=== PATIENT | male | born 1990 | race African-American/Black ===

== ENCOUNTER 2019-03-12 17:11 | Emergency (ER) | payer SELFPAY ==
[~2019-03-12] VITALS: Ht 180.3 cm; Wt 90.0 kg
[2019-03-12 17:38] VITALS: BP 127/79
[2019-03-12] MEDS ORDERED: LIDOCAINE HCL/PF 1% 10 MG/ML 5ML VIAL IJ ONE (21:15)
[2019-03-12] MEDS ORDERED: BACITRACIN ZINC OINT UDPKT TOP ONE (21:15)
[2019-03-12] MEDS ORDERED: LIDOCAINE HCL 2% JELLY 5ML TOP ONE (21:30)
== END 2019-03-14 05:32 | disposition home or self-care (01) ==
LOC: ER 17:11
DX: L02.31 Cutaneous abscess of buttock (principal); L03.317 Cellulitis of buttock
CPT/HCPCS: 99283

== ENCOUNTER 2022-01-16 08:32 | Emergency (ER) | payer MEDICAID ==
[~2022-01-16] VITALS: Ht 182.9 cm; Wt 90.0 kg
[2022-01-16] MEDS ORDERED: MORPHINE SULFATE 4 MG/ML CPJ (NOT FOR IM USE) IV STA (11:16)
[2022-01-16] MEDS ORDERED: LEVOFLOXACIN 500MG PREMIX 100 ML IV ONE (11:30)
[2022-01-16] MEDS ORDERED: METRONIDAZOLE 500 MG PREMIX 100 ML IV ONE (11:30)
[2022-01-16] MEDS ORDERED: SODIUM CHLORIDE 0.9% 1,000 ML IV ONE (11:30)
[2022-01-16 11:44] LABS: BASOPHILS % 0.1 % (0.0-2.0); EOSINOPHILS % 0.2 % (0.0-5.0); HEMATOCRIT. 41.3 % (42.0-52.0); HEMOGLOBIN. 13.9 g/dL (14.0-18.0); MEAN CORPUSCULAR HEMOGLOBIN 28.2 pg (28.0-32.0); MEAN CORPUSCULAR VOLUME 83.9 fL (80.0-94.0); MONOCYTES % 6.5 % (2.0-8.0); NEUTROPHILS % 75.2 % (40.0-76.0); PLATELET 266 x1000/uL (130-400); RED BLOOD CELL COUNT 4.93 mill/uL (4.7-6.1); RED CELL DISTRIBUTION WIDTH 13.2 % (11.6-14.6)
[2022-01-16 11:54] LABS: CHLORIDE 107 mEq/L (98-107)
[2022-01-16] MEDS ORDERED: IOHEXOL-300 100 ML BOTTLE ONE (15:02)
[2022-01-17 00:20] VITALS: BP 119/76
== END 2022-01-17 00:31 | disposition short-term general hospital (02) ==
LOC: ER 08:48 → CANBEDREQ 01-17 02:38
DX: K61.1 Rectal abscess (principal); K50.90 Crohn's disease, unspecified, without complications; H40.9 Unspecified glaucoma; Z20.822 Contact with and (suspected) exposure to COVID-19
CPT/HCPCS: 36415; 74177; 80053; 83690; 85025; 87426; 96365; 96375; 99285; J1956; J2270; J3490; J7030; Q9967

== ENCOUNTER 2022-04-20 16:17 | Emergency (ER) | payer MEDICAID ==
[~2022-04-20] VITALS: Ht 177.8 cm; Wt 89.0 kg
[2022-04-20] MEDS ORDERED: AMOX1TAB16 MT (20:04)
[2022-04-20 20:54] VITALS: BP 126/69
== END 2022-04-20 20:57 | disposition home or self-care (01) ==
LOC: ER 16:17
DX: H72.91 Unspecified perforation of tympanic membrane, right ear (principal); H66.91 Otitis media, unspecified, right ear
CPT/HCPCS: 99283

== ENCOUNTER 2022-09-04 15:15 | Emergency (ER) | payer MEDICAID ==
[~2022-09-04] VITALS: Ht 188 cm; Wt 82.0 kg
[~2022-09-04 15:15] MED LIST: AMOX1TAB16 MT
[2022-09-04] MEDS ORDERED: ACETAMINOPHEN 325MG TABLET PO ONE (18:45)
[2022-09-04 20:08] LABS: BASOPHILS % 0.3 % (0.0-2.0); HEMATOCRIT. 39.1 % (42.0-52.0); HEMOGLOBIN. 13.7 g/dL (14.0-18.0); LYMPHOCYTES % 12.5 % (20.0-50.0); MEAN CORPUSCULAR HEMOGLOBIN 29.2 pg (28.0-32.0); MEAN CORPUSCULAR VOLUME 83.3 fL (80.0-94.0); MEAN PLATELET VOLUME 7.4 fl (7.4-10.4); MONOCYTES % 5.2 % (2.0-8.0); PLATELET 242 x1000/uL (130-400); RED BLOOD CELL COUNT 4.69 mill/uL (4.7-6.1); RED CELL DISTRIBUTION WIDTH 12.5 % (11.6-14.6)
[2022-09-04 20:14] LABS: CHLORIDE 100 mEq/L (98-107)
[2022-09-04 20:15] LABS: INR 1.1; PROTHROMBIN TIME 11.8 sec (9.6-11.0)
[2022-09-04] MEDS ORDERED: SODIUM CHLORIDE 0.9% 1,000 ML IV ONE (20:30)
[2022-09-04] MEDS ORDERED: IBUPROFEN 400MG TABLET PO ONE (23:15)
[2022-09-04] MEDS ORDERED: DOXYCYCLINE HYCLATE 100MG CAPSULE PO ONE (23:15)
[2022-09-04] MEDS ORDERED: CEFTRIAXONE SODIUM 500 MG/VIAL IM ONE (23:15)
[2022-09-05] MEDS ORDERED: DOXY100C5 MT (01:32)
[2022-09-05 01:46] VITALS: BP 124/79
== END 2022-09-05 02:26 | disposition home or self-care (01) ==
LOC: ER 15:15
DX: R10.31 Right lower quadrant pain (principal); K50.90 Crohn's disease, unspecified, without complications; Q43.8 Other specified congenital malformations of intestine; Z20.822 Contact with and (suspected) exposure to COVID-19
CPT/HCPCS: 36415; 74177; 80053; 83605; 83690; 85025; 85610; 86850; 86900; 86901; 99285; J0696

== ENCOUNTER 2022-09-24 07:27 | Emergency (ER) | payer MEDICAID ==
[~2022-09-24] VITALS: Ht 182.9 cm; Wt 82.0 kg
[~2022-09-24 07:27] MED LIST changes: +DOXY100C5 MT
[2022-09-24] MEDS ORDERED: ONDANSETRON HCL 4MG/2ML INJ IV STA (07:57)
[2022-09-24] MEDS ORDERED: MORPHINE SULFATE 4 MG/ML CPJ (NOT FOR IM USE) IV STA (07:57)
[2022-09-24] MEDS ORDERED: ACETAMINOPHEN 325MG TABLET PO STA (07:57)
[2022-09-24] MEDS ORDERED: SODIUM CHLORIDE 0.9% 1,000 ML IV ONE (08:00)
[2022-09-24 08:36] LABS: CLARITY URINE CLEAR (CLEAR); COLOR URINE DARK YELLOW (YELLOW); KETONES URINE TRACE (NEGATIVE); LEUKOCYTE ESTERASE URINE NEGATIVE (NEGATIVE); NITRITE URINE NEGATIVE (NEGATIVE); OCCULT BLOOD URINE NEGATIVE (NEGATIVE); PH URINE 6.5 (4.5-8.0); PROTEIN URINE 2+ (NEGATIVE); SPECIFIC GRAVITY URINE 1.021 (1.005-1.030)
[2022-09-24 08:39] LABS: CHLORIDE 98 mEq/L (98-107)
[2022-09-24 08:40] LABS: INR 1.1; PROTHROMBIN TIME 11.7 sec (9.6-11.0)
[2022-09-24 08:44] LABS: BASOPHILS % 0.4 % (0.0-2.0); EOSINOPHILS % 0.2 % (0.0-5.0); HEMATOCRIT. 36.9 % (42.0-52.0); HEMOGLOBIN. 12.5 g/dL (14.0-18.0); LYMPHOCYTES % 20.3 % (20.0-50.0); MEAN CORPUSCULAR HEMOGLOBIN 28.3 pg (28.0-32.0); MEAN CORPUSCULAR VOLUME 83.3 fL (80.0-94.0); MEAN PLATELET VOLUME 7.5 fl (7.4-10.4); MONOCYTES % 7.2 % (2.0-8.0); NEUTROPHILS % 71.9 % (40.0-76.0); PLATELET 294 x1000/uL (130-400); RED BLOOD CELL COUNT 4.43 mill/uL (4.7-6.1); RED CELL DISTRIBUTION WIDTH 12.8 % (11.6-14.6)
[2022-09-24] MEDS ORDERED: DICYCLOMINE 10 MG/5 ML ORAL SYR PO STA (10:34)
[2022-09-24] MEDS ORDERED: FAMOTIDINE 20MG/2ML VIAL IV STA (10:34)
[2022-09-24] MEDS ORDERED: VISCOUS LIDOCAINE 2% 15 ML UDC PO STA (10:34)
[2022-09-24] MEDS ORDERED: MAGNESIUM/ALUMINUM HYDROXIDE/SIMETHICONE 30ML UDC PO STA (10:34)
[2022-09-24] MEDS ORDERED: OMEP20TA23 PO (10:59)
[2022-09-24 12:40] VITALS: BP 129/68
== END 2022-09-24 15:01 | disposition home or self-care (01) ==
LOC: ER 07:27 → EDBEDREQTM 08:00 → CANBEDREQ 11:00 → ER 15:01
DX: R10.13 Epigastric pain (principal); K50.90 Crohn's disease, unspecified, without complications
CPT/HCPCS: 36415; 71045; 74176; 80053; 81003; 83605; 83690; 84145; 85025; 85610; 93005; 96361; 96374; 96375; 99285; J2270; J2405; J3490; J7030